=== PATIENT | male | born 1985 | race Caucasian/White ===

== ENCOUNTER → 2020-06-20 | Outpatient (CLI) | payer BC, MEDICAID | LOC: M OUTALCOH 07:33 | PROVIDERS: ATTEND Psychiatry & Neurology Psychiatry | DX: F11.20 Opioid dependence, uncomplicated (principal); F12.20 Cannabis dependence, uncomplicated ==

== ENCOUNTER 2020-07-24 09:00 | Outpatient (RCR) | payer BC, MEDICAID, OTHER | END 2020-07-25 | LOC: M OUTALCOH 09:00 | PROVIDERS: ATTEND Psychiatry & Neurology Psychiatry | DX: F11.20 Opioid dependence, uncomplicated (principal); F12.20 Cannabis dependence, uncomplicated ==

== ENCOUNTER 2020-08-21 09:00 | Outpatient (RCR) | payer BC, MEDICAID | END 2020-08-25 | LOC: M OUTALCOH 09:00 | PROVIDERS: ATTEND Psychiatry & Neurology Psychiatry | DX: F11.20 Opioid dependence, uncomplicated (principal); F12.20 Cannabis dependence, uncomplicated ==

== ENCOUNTER → 2020-09-24 | Outpatient (RCR) | payer BC, MEDICAID | LOC: M OUTALCOH 08-27 14:37 | PROVIDERS: ATTEND Psychiatry & Neurology Psychiatry | DX: F11.20 Opioid dependence, uncomplicated (principal); F12.20 Cannabis dependence, uncomplicated ==

== ENCOUNTER 2020-10-20 14:02 | Outpatient (RCR) | payer BC, MEDICAID | END 2020-10-25 | LOC: M OUTALCOH 14:02 | PROVIDERS: ATTEND Psychiatry & Neurology Psychiatry | DX: F11.20 Opioid dependence, uncomplicated (principal); F12.20 Cannabis dependence, uncomplicated ==

== ENCOUNTER 2020-11-24 16:00 | Outpatient (RCR) | payer BC, MEDICAID | END 2020-11-25 | LOC: M OUTALCOH 16:00 | PROVIDERS: ATTEND Psychiatry & Neurology Psychiatry | DX: F11.20 Opioid dependence, uncomplicated (principal); F12.20 Cannabis dependence, uncomplicated ==

== ENCOUNTER 2020-12-15 11:00 | Outpatient (RCR) | payer BC, MEDICAID, OTHER | END 2020-12-25 | LOC: M OUTALCOH 11:00 | PROVIDERS: ATTEND Psychiatry & Neurology Psychiatry | DX: F11.20 Opioid dependence, uncomplicated (principal); F12.20 Cannabis dependence, uncomplicated ==

== ENCOUNTER 2021-01-20 08:00 | Outpatient (RCR) | payer OTHER | END 2021-01-25 | LOC: M OUTALCOH 08:00 | PROVIDERS: ATTEND Psychiatry & Neurology Psychiatry | DX: F11.20 Opioid dependence, uncomplicated (principal); F12.20 Cannabis dependence, uncomplicated ==

== ENCOUNTER 2021-01-28 09:33 | Outpatient (RCR) | payer OTHER | END 2021-02-24 | LOC: M OUTALCOH 09:33 | PROVIDERS: ATTEND Psychiatry & Neurology Psychiatry | DX: F11.20 Opioid dependence, uncomplicated (principal); F12.20 Cannabis dependence, uncomplicated ==

== ENCOUNTER 2021-03-31 11:29 | Outpatient (RCR) | payer OTHER | END 2021-04-27 | LOC: M OUTALCOH 11:29 | PROVIDERS: ATTEND Psychiatry & Neurology Psychiatry | DX: F11.20 Opioid dependence, uncomplicated (principal); F12.20 Cannabis dependence, uncomplicated ==

== ENCOUNTER 2021-09-22 09:10 | Emergency (ER) | payer OTHER ==
[~2021-09-22] VITALS: Ht 177.8 cm; Wt 88.5 kg
[2021-09-22] MEDS ORDERED: BACTDSTA (09:41)
[2021-09-22] MEDS ORDERED: VIVI380I (09:41)
[2021-09-22] MEDS ORDERED: CEPH500C (09:41)
[2021-09-22 12:17] LABS: BASO # 0.1 10^3/uL (0.0-0.2); BASO % 0.5 % (0.0-1.0); EOS # 0.1 10^3/uL (0.0-0.5); EOS % 1.2 % (0.0-3.0); HEMATOCRIT 43.7 % (42.0-52.0); HEMOGLOBIN 14.8 g/dl (13.5-17.5); LYMPH # 1.1 10^3/uL (1.5-5.0); MEAN CORPUSCULAR HEMOGLOBIN 31.3 pg (27.0-33.0); MEAN CORPUSCULAR HGB CONC 33.9 g/dl (32.0-36.5); MEAN CORPUSCULAR VOLUME 92.4 fl (80.0-96.0); MONO # 0.6 10^3/uL (0.0-0.8); NEUTROPHILS # 8.2 10^3/uL (1.5-8.5); NEUTROPHILS % 80.9 % (36.0-66.0); PLATELET COUNT, AUTOMATED 304 10^3/uL (150-450); RED BLOOD COUNT 4.73 10^6/uL (4.30-6.10); WHITE BLOOD COUNT 10.2 10^3/uL (4.0-10.0)
[2021-09-22] MEDS ORDERED: LIDOCAINE W/EPINEPHRINE 1% 20ML VIAL SC ONE (13:10)
[2021-09-22 14:25] VITALS: BP 138/62
== END 2021-09-22 14:29 | disposition home or self-care (01) ==
LOC: M ED 09:10 → EEVIPCON 09:10 → M ED 14:29
DX: L02.232 Carbuncle of back [any part, except buttock and flank] (principal); Z88.0 Allergy status to penicillin